=== PATIENT | female | born 1990 | race Caucasian/White ===

== ENCOUNTER 2016-11-16 22:00 | Emergency (ER) | payer SELFPAY ==
[~2016-11-16] VITALS: Ht 160 cm; Wt 54.2 kg
--- OUTSIDE RECORDS SUMMARY | 2016-11-16 22:04 | XMS REPORT ---
Author Author Yvonne Cartagena Organization [employer] Address Unknown Phone Unavailable Care Team Providers Care Mirror Fabrication Supervisor Name Role Phone Yvonne Cartagena Unavailable Allergies, Adverse Reactions, Alerts Substance Reaction Event Type Bactrim Info Not Available Drug Allergy Problems Problem Type Condition ICD-9 Code Onset Dates Condition Status Problem Nausea 787.02 Active Problem Asthma 493.90 Active Problem Bronchitis with bronchospasm 466.0 Active Assessment Bronchitis with bronchospasm 466.0 Active Assessment Nausea 787.02 Active Problem Acute upper respiratory infections of unspecified site 465.9 Active Problem Acute bronchitis 466.0 Active Medications Medication Code System Code Instructions Start Date End Date Status Dosage Alprazolam [facility] [address]-30 0.25 MG Orally Three times a day PRN January 27, 2014 Active 1 tablet Ventolin HFA [facility] [address]-37 108 (90 Base) MCG/ACT Inhalation every 4 hrs PRN January 27, 2014 Active 2 puffs as needed PredniSONE [facility] [address]-34 20 MG Orally Once a day Apr 26, 2014 May 03, 2014 Active 3 tablets x 2 days, 2 tablets x 2 days, 1 tablet x 2 days Benzonatate [facility] [address]-34 200 MG Orally Three times a day prn cough Apr 26, 2014 May 06, 2014 Active 1 capsule as needed Albuterol Sulfate HFA [facility] [address]-50 108 (90 Base) MCG/ACT Inhalation every 4 hrs prn wheezing/cough Apr 26, 2014 Active 2 puffs as needed Procedures Procedure Coding System Code Date AIRWAY INHALATION TREATMENT CPT-4 10992 Apr 26, 2014 ALBUTEROL NON-COMP UNIT CPT-4 J7613 Apr 26, 2014 URINE TEST CPT-4 63539 Apr 26, 2014 OFFICE VISIT EST PATIENT LEVEL 3 CPT-4 14004 Apr 26, 2014 Vital Signs Date/Time: Apr 26, 2014 BMI 21.79 Index Weight 123 lbs Height 63 in Blood Pressure Diastolic 70 mm Hg Blood Pressure Systolic 114 mm Hg Cardiac Monitoring Heart Rate 60 /min Temperature 98 F Oximetry 99 % Respiratory Rate 20 /min Results No Known Results Summary Purpose [employer] Submission
--- OUTSIDE RECORDS SUMMARY | 2016-11-16 22:04 | XMS REPORT | Summary of Care ---
Author Author Kim Shea APRN Organization Unknown Address [address] [facility] [place], [place] [id number] Phone Unavailable Care Team Providers Care Spring Salvage Worker Name Role Phone Kim Shea APRN Unavailable Unavailable Unavailable Unavailable Functional Status Functional Status Health Issues* Name Dates Details Functional status health issues are not documented Status: Cognitive Status Health Issues* Name Dates Details Cognitive status health issues are not documented Status: Problems Name Dates Details Acute bronchitis (466.0, J20.9) Status: Active Acute pharyngitis (462, J02.9) Status: Active Acute sinusitis (461.9, J01.90) Status: Active Medications Name Dates Details Amoxicillin 500 MG Oral Capsule TAKE 2 CAPSULES TWICE DAILY UNTIL GONE. Quantity: 40 Kim Shea NEURO UROLOGIST* Started 06-Sep-2014 Ended 16-Sep-2014 Active Allergies and Adverse Reactions Name Dates Details Bactrim TABS Status: Active Sulfa Drugs Status: Active Procedures Procedure Dates Details Procedures not documented Immunization Name Dates Details Immunizations not documented Social History Name Dates Details Smoking Status* Smoker. current status unknown Vital Signs Date Test Result Details 06-Sep-2014 10:02 Heart Rate 105 /min Status: Temperature 98.8 f Status: Weight 120 lb Status: O2 SAT 98 % Status: Results Date Description Value Details Results not documented Plan of Care Planned Observations* Name Dates Details Planned Goals not documented Goal Instructions * Instructions not documented Encounters Appointment; Kim Shea Encounter Diagnosis: Problem not documented On 06-Sep-2014 09:50 Appointment; Zeina Fitzpatrick Encounter Diagnosis: Problem not documented On 26-Jul-2014 09:40 Appointment; Zeina Fitzpatrick Encounter Diagnosis: Problem not documented On 03-Mar-2014 12:20
--- OUTSIDE RECORDS SUMMARY | 2016-11-16 22:04 | XMS REPORT | Referral Summary ---
Author Author [facility] Organization [facility] Address Unknown Phone Unavailable Care Team Providers Care Consulting Software Engineer Name Role Phone Iker Owen Primary Care Physician [phone] Encounter VC Date(s): 02/11/15 - 02/11/15 [facility] [address] [place] [id number] Discharge Diagnosis: Synovitis of knee Discharge Disposition: 01-Home or Self Care Attending Physician: Gary Lemon MD Admitting Physician: Gary Lemon MD Vital Signs Most recent to 1 oldest [Reference Range]: Respiratory Rate 18 br/min [14-20 br/min] (02/11/15 4:21 PM) Problem List Condition Effective Dates Status Health Status Informant Abscess of 2010 Active buttock(Confirmed) Asthma(Confirmed) Active Depression(Confirmed Active ) Synovitis of Active knee(Confirmed) tonsillectomy(Confir Resolved med) Chicken Active pox(Confirmed) Allergies, Adverse Reactions, Alerts Substance Reaction Severity Status sulfamethoxazole HIVES Active THROAT SWELL trimethoprim HIVES Active THROAT SWELL Medications Cipro 500 mg oral tablet 1 tabs, Oral, q12hr Start Date: 09/06/14 Status: Ordered ibuprofen 0 Refill(s) Start Date: 01/21/14 Status: Ordered Results No data available for this section Immunizations No data available for this section Procedures Procedure Date Related Diagnosis Body Site Arthrocentesis, aspiration and/or injection, 02/11/15 major joint or bursa (eg, shoulder, hip, knee, subacromial bursa); without ultrasound guidance I&D and packing and ABX S/P tonsillectomy Social History Social History Type Response Smoking Status Current every day smoker; Type: Cigarettes; Tobacco use per day: 1 Pack Assessment and Plan Extracted from: Title: Office Visit Note Author: Gary Lemon MD Date: 02/11/15 Assessment/Plan Synovitis of knee Think she has synovitis in her knee. She get relief in the past with doing an injection. I'd recommend doing another injection. I think her pain is out of proportion to what were finding as well. I'd recommend we do an injection if she does not get good relief with that then I need to see her back and probably do further workup with possibly an MRI study Procedure note: Left knee was sterilely prepped with Betadine. Injected left knee joint with 80 mg of Kenalog and 8 mL of one percent lidocaine. Ordered: triamcinolone, 2 mL, IntraARTICULAR , Once, First Dose: 02/11/15 10:00:00 CDT, Stop Date: 02/11/15 10:00:00 CDT, [facility] [id number] Arthro/Asp Major Joint Inj (Shoulder, Hip, Knee) 31289 Office Visit Level 3 Est 01028
--- OUTSIDE RECORDS SUMMARY | 2016-11-16 22:04 | XMS REPORT ---
Author Author Fabiola Ash Organization [employer] Address Unknown Phone Unavailable Care Team Providers Care Director Of Teacher Education Name Role Phone Fabiola Ash CP Unavailable Allergies No Known Allergies Problems Problem Type Condition ICD-9 Code Onset Dates Condition Status Problem Acute upper respiratory infections of unspecified site 465.9 Active Problem Acute bronchitis 466.0 Active Problem Asthma 493.90 Active Medications No Known Medications Results No Known Results Summary Purpose [employer] Submission
--- OUTSIDE RECORDS SUMMARY | 2016-11-16 22:05 | XMS REPORT ---
Author Author [employer] Organization Unknown Address Unknown Phone Unavailable Care Team Providers Care Sewer Connector Name Role Phone PP Unavailable Reason For Visit Chief Complaint MIGRAINE Social History Functional Status Vital Signs Results Problems Encounter Diagnosis No relevant problems exist. Encounters Encounter Diagnosis No relevant problems exist. Plan of Care Procedures No relevant procedures performed. Immunizations No immunizations administered or ordered. Hospital Course Hospital Discharge Instructions Allergies, Adverse Reactions, Alerts * Latex Allergy has not been assessed. * IV Contrast Allergy has not been assessed. Medication Medication reconciliation has not been performed.
--- OUTSIDE RECORDS SUMMARY | 2016-11-16 22:05 | XMS REPORT ---
Author Author [employer] Organization Unknown Address Unknown Phone Unavailable Care Team Providers Care Sew On Operator Name Role Phone PP Unavailable Reason For Visit Chief Complaint L KNEE PAIN Social History Functional Status Vital Signs Results Hematology from 02/25/2016 11:10 PMWBC 7.8 X10e3/UL (3.6-11.2 X10e3/UL) RBC 4.29 X10e6/UL (3.63-4.92 X10e6/UL) HEMOGLOBIN 13.8 G/DL (11.0-14.3 G/DL) HEMATOCRIT 39.5 % (31.2-41.9 %) *MCV 92.1 FL (79.0-98.0 FL) *MCH 32.1 PG (27.0-33.0 PG) *MCHC 34.8 G/DL (32.0-36.0 G/DL) *RDW 11.7 % L (12.3-17.0 %) PLATELET 247 X10e3/UL (159-386 X10e3/UL) *MPV 9.4 FL (7.4-10.4 FL) AUTOMATED DIFF PERFORMED SEGS 66.0 % *LYMPHOCYTES 27.6 % *MONOCYTES 4.7 % *EOSINOPHILS 0.7 % *BASOPHILS 1.0 % *ABSOLUTE NEUTROPHILS 5.10 X10e3/UL (1.80-7.80 X10e3/UL) *ABSOLUTE LYMPHOCYTES 2.10 X10e3/UL (1.00-3.00 X10e3/UL) *ABSOLUTE MONOCYTES 0.40 X10e3/UL (0.30-1.00 X10e3/UL) *ABSOLUTE EOSINOPHILS 0.10 X10e3/UL (0.00-0.50 X10e3/UL) *ABSOLUTE BASOPHILS 0.10 X10e3/UL (0.00-0.20 X10e3/UL) DX Radiology from 02/25/2016 11:01 PMKNEE LEFT 3 VIEWS History: knee pain . Technique: 3 view knee performed. Priors: None. Findings: No acute fractures or subluxations are identified. There is no joint effusion. Impression: Unremarkable radiographs of the left knee. Electronically signed by: Carloz Brown MD Dictated: 02/26/2016 13:30 Problems Encounter Diagnosis No relevant problems exist. [...]
--- OUTSIDE RECORDS SUMMARY | 2016-11-16 22:05 | XMS REPORT | Continuity of Care Document ---
Author Author [facility] Organization [facility] Address Unknown Phone Unavailable Allergies Medications Problems Procedures Results Encounters ACCT No. Visit Date/Time Discharge Status Pt. Type Provider Facility Loc./Unit Complaint [id number] 04/26/2016 13:29:00 2015 00:58:22 [facility] Emergency DONALD ANDERSON MIGRAINE [id number] 02/25/2016 19:50:00 2015 17:18:30 DIS Emergency SHIVAM ARREDONDO KNEE PAIN
--- OUTSIDE RECORDS SUMMARY | 2016-11-16 22:05 | XMS REPORT | Summary of Care ---
Author Author Zeina Fitzpatrick APRN Organization Unknown Address [address], [place] [id number] Phone Unavailable Care Team Providers Care Residential Mortgage Manager Name Role Phone Amari PAGE Zeina Unavailable Unavailable Unavailable Unavailable Functional Status Functional Status Health Issues* Name Dates Details Functional status health issues are not documented Status: Cognitive Status Health Issues* Name Dates Details Cognitive status health issues are not documented Status: Problems Name Dates Details Acute bronchitis (466.0, J20.9) Status: Active Acute pharyngitis (462, J02.9) Status: Active Medications Name Dates Details Azithromycin 250 MG Oral Tablet TAKE 2 TABLETS ON DAY 1 THEN TAKE 1 TABLET A DAY FOR 4 DAYS. Quantity: 1 Zeina Fitzpatrick APRN* Started 03-Mar-2014 Active6 Tablet Disp Pack PredniSONE 10 MG Oral Tablet TAKE 4 TABLETS DAILY FOR 2 DAYS,3 TABLETS DAILY FOR 2 DAYS, 2 TABLETS DAILY FOR 2 DAYS AND 1 TABLET DAILY FOR 2 DAYS, THEN STOP. * Quantity: 20 Refills: 0 Zeina Fitzpatrick APRN* Started 03-Mar-2014 Active Allergies and Adverse Reactions Name Dates Details Bactrim TABS Status: Active Procedures Procedure Dates Details Procedures not documented Immunization Name Dates Details Immunizations not documented Social History Name Dates Details Smoking Status* Smoker. current status unknown Vital Signs Date Test Result Details 26-Jul-2014 09:47 Heart Rate 90 /min Status: Temperature 98.4 f Status: Weight 120 lb Status: O2 SAT 98 % Status: Results Date Description Value Details Results not documented Plan of Care Planned Observations* Name Dates Details Planned Goals not documented Goal Instructions * Instructions not documented Encounters Appointment; Zeina Fitzpatrick Encounter Diagnosis: Problem not documented On 26-Jul-2014 09:40 Appointment; Zeina Fitzpatrick Encounter Diagnosis: Problem not documented On 03-Mar-2014 12:20
--- OUTSIDE RECORDS SUMMARY | 2016-11-16 22:05 | XMS REPORT | Summary of Care ---
Author Author Amari PAGE Zeina Organization Unknown Address [address] [place], [place] [id number] Phone Unavailable Care Team Providers Care Echo Tech Name Role Phone Amari PAGE Zeina Unavailable Unavailable Unavailable Unavailable Functional Status Functional Status Health Issues* Name Dates Details Functional status health issues are not documented Status: Cognitive Status Health Issues* Name Dates Details Cognitive status health issues are not documented Status: Problems Name Dates Details Acute bronchitis (466.0, J20.9) Status: Active Acute pharyngitis (462, J02.9) Status: Active Medications Name Dates Details PredniSONE 10 MG Oral Tablet TAKE 4 TABLETS DAILY FOR 2 DAYS,3 TABLETS DAILY FOR 2 DAYS, 2 TABLETS DAILY FOR 2 DAYS AND 1 TABLET DAILY FOR 2 DAYS, THEN STOP. Quantity: 20 Kartikjustinshiela Zeina PAGE* Started 03-Mar-2014 ActiveAzithromycin 250 MG Oral Tablet TAKE 2 TABLETS ON DAY 1 THEN TAKE 1 TABLET A DAY FOR 4 DAYS. * Quantity: 1 Refills: 0 VíctorMariobobby Zeina PAGE* Started 03-Mar-2014 Active6 Tablet Disp Pack Allergies and Adverse Reactions Name Dates Details Bactrim TABS Status: Active Procedures Procedure Dates Details Procedures not documented Immunization Name Dates Details Immunizations not documented Social History Name Dates Details Smoking Status* Smoker. current status unknown Vital Signs Date Test Result Details No Known Vitals to report Results Date Description Value Details Results not documented Plan of Care Planned Observations* Name Dates Details Planned Goals not documented Goal Instructions * Instructions not documented Encounters Appointment; Zeina Fitzpatrick Encounter Diagnosis: Problem not documented On 26-Jul-2014 09:40 Appointment; Zeina Fitzpatrick Encounter Diagnosis: Problem not documented On 03-Mar-2014 12:20
--- OUTSIDE RECORDS SUMMARY | 2016-11-16 22:05 | XMS REPORT ---
Author Author Rama Howard Organization [employer] Address Unknown Phone Unavailable Care Team Providers Care Regional Facilities Manager Name Role Phone Rama Howard CP Unavailable Allergies No Known Allergies Problems Problem Type Condition ICD-9 Code Onset Dates Condition Status Problem Acute upper respiratory infections of unspecified site 465.9 Active Problem Acute bronchitis 466.0 Active Problem Asthma 493.90 Active Medications No Known Medications Results No Known Results Summary Purpose [employer] Submission
[2016-11-16 22:08] VITALS: Ht 160 cm; Wt 54.2 kg
--- OUTSIDE RECORDS SUMMARY | 2016-11-16 22:13 | XMS REPORT ---
Author Author [employer] Organization Unknown Address Unknown Phone Unavailable Care Team Providers Care Junior Automation Engineer Name Role Phone PP Unavailable Reason For [...]
--- OUTSIDE RECORDS SUMMARY | 2016-11-16 22:13 | XMS REPORT | Continuity of Care Document ---
Author Author [facility] Organization [facility] Address Unknown Phone Unavailable Allergies Medications Problems Procedures Results Encounters ACCT No. Visit Date/Time Discharge Status Pt. Type Provider Facility Loc./Unit Complaint [id number] 04/26/2016 13:29:00 2015 00:58:22 DIS Emergency DONALD ANDERSON MIGRAINE [id number] 02/25/2016 19:50:00 2015 17:18:30 DIS Emergency SHIVAM ARREDONDO KNEE PAIN
--- OUTSIDE RECORDS SUMMARY | 2016-11-16 22:13 | XMS REPORT ---
Author Author [employer] Organization Unknown Address Unknown Phone Unavailable Care Team Providers Care Rn Neonatal Name Role Phone PP Unavailable Reason For [...]
[2016-11-16 22:45] LABS: BLOOD, URINE NEGATIVE (NEGATIVE); COLOR,URINE YELLOW (YELLOW); LEUKOCYTE ESTERASE ,URINE NEGATIVE (NEGATIVE); NITRITE,URINE NEGATIVE (NEGATIVE)
[2016-11-16] MEDS ORDERED: HYDROMORPHONE 2mg/ml INJECTION IV ONE ×2 (22:45→23:00)
--- NOTE | 2016-11-16 22:50 | ERPDOC ---
Departure Disposition Decision Date: Nov 17, 2016 Disposition Decision Time: 01:34 (ABHINAV RAMOS DO) Disposition: 01 DISCHARGED HOME, SELF-CARE Impression Impression (ALCON RUSS APRN) Impression: Primary Impression: Abdominal pain Abdominal location: unspecified location Qualified Codes: R10.9 - Unspecified abdominal pain Additional Impression: Constipation Constipation type: unspecified constipation type Qualified Codes: K59.00 - Constipation, unspecified Severity: Moderate (ABHINAV RAMOS DO) Condition: Improved Seen By: Physician and Mid-level (ABHINAV RAMOS DO) Referrals: LARS SPEAR MD (Family) 2 Days Patient Instructions: Abdominal Pain (ED) Problems/Meds/Labs Reviewed?: Yes Medications reviewed and manag: Yes (ABHINAV RAMOS DO) Mental Status: Alert, Oriented (ALCON RUSS APRN) Follow up care ordered?: Yes Mental Status: Alert, Oriented (ABHINAV RAMOS DO) Scripts Polyethylene Glycol 3350 (Miralax) 17 Gm Powd.pack 17 G PO DAILY for 14 Days, #1 BOTTLE 0 Refills Take 17 Grams (1 capful), by mouth, once a day. Prov: ABHINAV RAMOS DO 11/17/16 Hydrocodone/Acetaminophen ([place] 5-325 Tablet) 5-325 Tablet 1 TAB PO Q4HR Y for PAIN for 2 Days, #12 TAB 0 Refills Prov: ABHINAV RAMOS DO 11/17/16 Ondansetron (Zofran Odt) 4 Mg Tab.rapdis 4 MG PO Q4HR Y for NAUSEA &/OR VOMITING for 3 Days, #18 TAB 0 Refills Prov: ABHINAV RAMOS DO 11/17/16 HPI - Female General Chief Complaint: Abdominal Pain Stated Complaint: ABD PAIN Time Seen by Provider: 22:06 Source: patient (ALCON RUSS APRN) Time Seen by Provider: 22:06 (ABHINAV RAMOS DO) HPI - Female Initial Comments 26-year-old female presents to ER with complaint of jair-umbilical abdominal pain that radiates "straight through" to her back that started around 1230 today. Pain has been constant, patient describes it as an ache. Patient is concerned that her IUD has moved. When I asked patient why she thinks IUD has moved she says she can no longer felt the strings. Patient does admit that she did have sexual intercourse prior to onset of periumbilical pain. Patient also reports having some spotting earlier today which started after sexual intercourse. Patient reports pain is worse when she is standing upright. Denies fever, chills, nausea, vomiting, diarrhea or dysuria. Last BM yesterday. When asked when LMP patient says she does not have them with IUD. Duration: 6-12 hrs Pain Scale: Now: 5/10 Severity/Quality: sharpness Location: periumbilical Radiation: back Sexual [place] History: greater than 2 months ago, single partner Associated Symptoms: abdominal pain, DENIES: diaphoresis, dysuria, fever/chills , loss of bladder control, lower back pain, lumps, mass, nausea/vomiting, nocturia, polyuria, swelling, syncope, urinary frequency Is Pt now?: No Expected Date of Delivery: Sep 21, 2008 : 1 Para: 0 (ALCON RUSS APRN) Allergies: Coded Allergies: sulfamethoxazole (Verified Allergy, Severe, ANAPHYLAXIS, 11/16/16) trimethoprim (Verified Allergy, Severe, ANAPHYLAXIS, 11/16/16) hydroxyzine HCl (Unverified Adverse Reaction, Unknown, 11/16/16) Past History Past Medical History Pt denies signifigant PMH (ALCON RUSS APRN) Surgical History Denies Surgeries (ALCON RUSS APRN) Family History Family PMH: FOUND: OR, diabetes, hypertension (ALCON RUSS APRN) Vaccines Hx Influenza Vaccination: Yes Hx Pneumococcal Vaccination: No (ALCON RUSS APRN) Social History Sexuality: male partner (ALCON RUSS APRN) Review of Systems Constitutional Constitutional: DENIES: chills, dizziness, fever, weakness (ALCON RUSS APRN) Eyes General: DENIES: erythema, exudate Lids/Accessories: DENIES: erythema, swelling (ALCON RUSS APRN) ENMT Ears: DENIES: pain Hearing: DENIES: hearing loss Sinuses: DENIES: congestion, rhinorrhea Mouth/Throat: DENIES: sore throat (ALCON RUSS APRN) Cardiovascular Cardiac: DENIES: chest pain, murmur Rhythm/Rate: DENIES: palpitations (ALCON RUSS APRN) Pulmonary Respiratory: DENIES: cough, dyspnea (RUSS,ALCON A SUBMARINE OPERATOR) GI Upper Abdomen: pain, see HPI, DENIES: nausea, vomiting Lower Abdomen: pain, see HPI, DENIES: blood in stool, constipation, diarrhea ( RUSSROSALEES A SUBMARINE OPERATOR) General: DENIES: burning, dysuria, frequency, pain, urgency (RUSSROSALEES A SUBMARINE OPERATOR) Musculoskeletal General: DENIES: joint pain, pain, tenderness (RUSSROSALEES A SUBMARINE OPERATOR) Integumentary Skin: DENIES: color change, itching, rash (RUSSROSALEES A SUBMARINE OPERATOR) Neurological General: DENIES: ataxia, change in strength, numbness, paralysis/paresis, weakness (ROSALEE RUSSS A SUBMARINE OPERATOR) Psychiatric Psychiatric: DENIES: anxiety, depression, nervousness (ROSALEE RUSSS A SUBMARINE OPERATOR) Physical Exam General General Nourishment: well nourished, well developed, adult General Body Habitus: well groomed (ROSALEE RUSSS A SUBMARINE OPERATOR) Vitals and Pain First Documented Vital Signs Date Time Temp Pulse Resp B/P Pulse Ox O2 Delivery O2 Flow Rate FiO2 11/16/16 22:08 99.0 116 18 124/82 98 Room Air (ABHINAV RAMOS DO) Vitals and Pain Weight: Kilograms: 54.200 Height (feet): 5 Height (inches): 3.00 Triage Pain Scale: (ROSALEE RUSSS A SUBMARINE OPERATOR) Eyes (brief) Eyes Brief: found: EOMI (ROSALEE RUSSS A SUBMARINE OPERATOR) ENMT (brief) ENMT Brief: FOUND: pharnyx erythema, NOT FOUND: mucosa moist, nasal exudate, nasal swelling (ROSALEE RUSSS A SUBMARINE OPERATOR) Neck (brief) Neck: FOUND: trachea midline, NOT FOUND: adenopathy, tenderness (RUSS ALCON A SUBMARINE OPERATOR) Respiratory (brief) Respiratory: FOUND: clear all babcock, equal bilaterally, symmetrical (RUSS ALCON A SUBMARINE OPERATOR) Cardiovascular Auscultation: FOUND: S1, S2, rate (114), regular (RUSSALCON A SUBMARINE OPERATOR) Abdomen Inspection: NOT FOUND: distention Palpation: FOUND: soft, tender (mild TTP periumbilical area), NOT FOUND: McBurney's point tender, Butler's sign, Psoas sign, Rosving's sign, hepatomegaly , involuntary guarding, rebound, splenomegaly, voluntary guarding Auscultation: FOUND: normoactive (x4) (ALCON RUSS SUBMARINE OPERATOR) Musculoskeletal (brief) Musculoskeletal Brief: NOT FOUND: deformity, loss of motion (ALCON RUSS SUBMARINE OPERATOR) Integumentary (brief) Integumentary Brief: FOUND: dry, pink, warm (ALCON RUSS APRN) Neurologic (brief) Neurological Brief: FOUND: motor-no gross deficits, sensory-no gross deficits ( ALCON RUSS APRN) Psychiatric (brief) Psychiatric Brief: FOUND: alert, normal affect, oriented (ALCON RUSS SUBMARINE OPERATOR ) Differential Diagnoses Considering: Appendicitis, Constipation/Obstipation, PID, UTI, Bacterial Vaginitis, Yeast Vaginitis, Trichomonas Vaginitis (ALCON RUSS APRN) Progress Results/Orders Orders Procedure Category Date Status Time Ua, Dip Wreflex LAB 11/16/16 Complete Microsc & Sales Account Associate 22:22 LAB 11/16/16 Complete Qualitative, Urine 22:22 Iv Lock (Ed Only) EDM 11/16/16 Transmitted 22:58 Nothing By Mouth (Ed EDM 11/16/16 Transmitted Only) 22:58 Cbc W/Auto LAB 11/16/16 Complete Diff-Reflex Manual 22:58 Cmp - Comprehensive LAB 11/16/16 Complete Metabolic 22:58 Normal Saline (Normal PHA 11/16/16 Complete Saline Iv) 22:58 Hydromorphone PHA 11/16/16 Complete (Dilaudid) 23:00 Ondansetron Inj PHA 11/16/16 Complete (Zofran) 23:00 Ct Abd/Pelvis CT 11/17/16 Resulted W/Contrast Only Hydromorphone PHA 11/17/16 Complete (Dilaudid) 00:15 Iohexol (Omnipaque) PHA 11/17/16 Complete 00:26 Normal Saline (Ns) PHA 11/17/16 Complete 00:26 Saline Flush (Iv PHA 11/17/16 Complete Flush) 00:26 Lipase LAB 11/17/16 Complete (ABHINAV RAMOS DO) Lab Results Laboratory Tests Test 11/16/16 22:39 11/16/16 23:17 Urine Collection Type Straight cath Urine Color Yellow Urine Turbidity Cloudy Urine pH 8.5 Urine Specific [place] 1.015 Urine Protein Trace Urine Glucose (UA) Negative Urine Ketones Negative Urine Blood Negative Urine Nitrite Negative Urine Bilirubin Negative Urine Urobilinogen 2.0EU/DL Urine Leukocyte Esterase Negative Urinalysis Comment Microscopic not ind. Urine Test Negative White Blood Count 11.0T/MM3 Red Blood Count 4.43M/MM3 Hemoglobin 14.2GM/DL Hematocrit 40.8% Mean Corpuscular Volume 92.1UM3 Mean Corpuscular Hemoglobin 32.1UUG Mean Corpuscular Hemoglobin Concent 34.8GM/DL RDW Standard Deviation 39.9FL Platelet Count 258T/MM3 Mean Platelet Volume 10.9UM3 Immature Granulocyte % (Auto) 0.1% Neutrophils (%) (Auto) 63.7% Lymphocytes (%) (Auto) 28.0% Monocytes (%) (Auto) 5.4% Eosinophils (%) (Auto) 2.3% Basophils (%) (Auto) 0.5% Absolute Immature Granulocyte (auto 0.01T/MM3 Absolute Neutrophils (auto) 7.0T/MM3 Absolute Lymphocytes (auto) 3.1T/MM3 Absolute Monocytes (auto) 0.6T/MM3 Absolute Eosinophils (auto) 0.3T/MM3 Absolute Basophils (auto) 0.1T/MM3 Turbidity < 20 Sodium Level 146MEQ/L Potassium Level 3.9MEQ/L Chloride Level 107MEQ/L Carbon Dioxide Level 28MEQ/L Anion Gap 11MEQ/L Blood Urea Nitrogen 11.0MG/DL Creatinine 0.9MG/DL Glomerular Filtration Rate Calc 76 BUN/Creatinine Ratio 12RATIO Glucose Level 84MG/DL Calculated Osmolality 279MOSM/KG Calcium Level 9.6MG/DL Total Bilirubin 0.40MG/DL Icterus Index < 2 Aspartate Amino Transf (AST/SGOT) 22U/L Alanine Aminotransferase (ALT/SGPT) 33U/L Alkaline Phosphatase 72U/L Total Protein 7.0G/DL Albumin 4.1G/DL Globulin 2.9G/DL Albumin/Globulin Ratio 1.4RATIO Lipase 237U/L Chemistry Specimen Hemolysis < 15 (ABHINAV RMAOS DO) Medications Current ED Medications Hydromorphone HCl 1 mg 1 mg O ONCE IV ; Start 11/16/16 at 22:45; Stop 11/16/16 at 22:46; Status Cancel Sodium Chloride (Normal Saline IV) 1,000 ml @ 0 mls/hr Q0M ONCE IV Last administered on 11/16/16 23:12; Start 11/16/16 at 22:58; Stop 11/16/16 at 23:00 ; Status DC Hydromorphone HCl (Dilaudid) 0.5 mg O ONCE IV Last administered on 11/16/16 23:14; Start 11/16/16 at 23:00; Stop 11/16/16 at 23:01; Status DC Ondansetron HCl (Zofran) 4 mg O ONCE IV Last administered on 11/16/16 23:15; Start 11/16/16 at 23:00; Stop 11/16/16 at 23:01; Status DC Hydromorphone HCl (Dilaudid) 0.5 mg O ONCE IV Last administered on 11/17/16 00:19; Start 11/17/16 at 00:15; Stop 11/17/16 at 00:16; Status DC Iohexol 1 bottle 1 bottle STK-MED ONCE .ROUTE ; Start 11/17/16 at 00:26; Stop at 00:27; Status DC Sodium Chloride (NS) 100 ml @ As Directed STK-MED ONCE .ROUTE ; Start 11/17/16 at 00:26; Stop 11/17/16 at 00:27; Status DC Sodium Chloride (Iv Flush) 10 ml STK-MED ONCE .ROUTE ; Start 11/17/16 at 00:26; Stop 11/17/16 at 00:27; Status DC (ABHINAV RAMOS DO) Progress Progress Labs unremarkable Patient reports improvement of pain form a 5/10 to 4/10 after 0.5mg of dilaudid. Provider care turn over to Dr. Ramos at 0032, I discussed patient's HPI, PMH, labs, VS, exam findings and treatment given in ED. (ALCON RUSS APRN) Progress CT scan abdomen/pelvis: Large amount of stool in the colon. Nonspecific fluid- filled small bowel loops can represent enteritis versus ileus versus slow transit constipation. Appendix not identified with complete certainty. No inflammatory findings noted in the right lower quadrant. IUD in place in the fundus of the uterus. No free air. No acute findings in the CT scan. Labs / imaging were discussed in detail with the patient and questions are answered. Patient's pain is currently a 2/3 of 10. Patient was given the option of returning home and monitoring her symptoms versus staying in observation status in the hospital and elects to return home. Patient was discussed with Dr. Oakley who is manager collection for general surgery who is in agreement with the current plan of management to discharge the patient home and have the patient return if she should develop a fever or if her pain should persist or increase. Patient currently has an unremarkable CBC, is afebrile, and has an unremarkable CT scan. Strict return precautions were provided and the patient verbalizes agreement and understanding. Patient is discharged home in improved condition. She is to follow up as instructed. Patient is to return to the emergency Department if her condition worsens or changes in any manner. Patient is provided with prescriptions for [place], Zofran, and MiraLAX. She is counseled regarding cautious use of the hydrocodone as it may worsen her constipation. She is in agreement with the current plan of management. (ABHINAV RAMOS DO) CT CT : CT: Abd/Pelvis IV contrast Interpretation: Normal, Faxed Report (ABHINAV RAMOS DO) ALCON RUSS SUBMARINE OPERATOR Nov 16, 2016 22:50 ABHINAV RAMOS DO Nov 17, 2016 01:36
[2016-11-16] MEDS ORDERED: NORMAL SALINE 1,000 ML IV ONE (22:58)
[2016-11-16] MEDS ORDERED: ONDANSETRON 4mg/2ml INJECTION IV ONE (23:00)
[2016-11-16] MEDS ORDERED: NO ROUTINE MEDS (23:30)
[2016-11-16 23:38] LABS: BASOPHILS # (AUTO) 0.1 T/MM3 (0-0.2); BASOPHILS % (AUTO) 0.5 % (0-2); EOSINOPHILS # (AUTO) 0.3 T/MM3 (0-0.5); EOSINOPHILS % (AUTO) 2.3 % (0-4); HCT - HEMATOCRIT 40.8 % (36-46); HGB - HEMOGLOBIN 14.2 GM/DL (12-16); IMMATURE GRANULOCYTE # (AUTO) 0.01 T/MM3 (0.00-0.03); IMMATURE GRANULOCYTE % (AUTO) 0.1 % (0.0-0.5); LYMPHOCYTES # (AUTO) 3.1 T/MM3 (1-4.8); MEAN CORPUSCULAR HGB 32.1 UUG (26-34); MEAN CORPUSCULAR HGB CONC(MCHC 34.8 GM/DL (31-37); MEAN CORPUSCULAR VOLUME 92.1 UM3 (80-100); MEAN PLATELET VOLUME 10.9 UM3 (9.4-12.4); MONOCYTES # (AUTO) 0.6 T/MM3 (0-0.8); MONOCYTES % (AUTO) 5.4 % (0-9.0); NEUTROPHILS % (AUTO) 63.7 % (33-66); RED BLOOD COUNT 4.43 M/MM3 (4.00-5.20)
[2016-11-16 23:48] LABS: ALBUMIN 4.1 G/DL (3.5-5.0); ALBUMIN/GLOBULIN RATIO 1.4 RATIO (1.1-2.2); ALKALINE PHOSPHATASE 72 U/L (38-126); ALT (SGPT) 33 U/L (9-52); ANION GAP 11 MEQ/L (5-15); AST (SGOT) 22 U/L (14-36); BUN/CREATININE RATIO 12 RATIO (6-26); CALCIUM 9.6 MG/DL (8.4-10.2); CHLORIDE 107 MEQ/L (98-107); CO2 - CARBON DIOXIDE 28 MEQ/L (22-30); CREATININE 0.9 MG/DL (0.7-1.2); GLOMERULAR FILTRATION RATE 76; GLUCOSE 84 MG/DL (65-110); POTASSIUM 3.9 MEQ/L (3.6-5); SODIUM 146 MEQ/L (134-144)
[2016-11-17] MEDS ORDERED: HYDROMORPHONE 2mg/ml INJECTION IV ONE (00:15)
[2016-11-17] MEDS ORDERED: IOHEXOL 300 MG/ML 75ml INJECTION ONE (00:26)
[2016-11-17] MEDS ORDERED: NORMAL SALINE 100 ML ONE (00:26)
[2016-11-17] MEDS ORDERED: SALINE FLUSH 10ml SYRINGE ONE (00:26)
--- NOTE | 2016-11-17 00:28 | NUR ---
CT PT TO IMAGING AT THIS TIME VIA CART.
--- NOTE | 2016-11-17 00:46 | NUR ---
CT PT RETURN TO ROOM VIA CART FROM IMAGING
[2016-11-17] MEDS ORDERED: ONDA4TAB7 PO (01:36)
[2016-11-17] MEDS ORDERED: POLY17PO6 PO (01:36)
[2016-11-17] MEDS ORDERED: HYDR-4246 PO (01:36)
[2016-11-17 01:54] VITALS: BP 108/76; PULSE 96; RESP 16; TEMP 98.7; O2SAT 97
--- NOTE | 2016-11-17 01:54 | NUR ---
DEPART PT GIVEN DI FOR ABDOMINAL PAIN, CONSTIPATION, NORCO, ZOFRAN, MIRALAX, AND F/U. RX FOR ZOFRAN, MIRALAX, AND NORCO PROVIDED. PT VERBALIZES UNDERSTANDING OF DI. QUESTIONS ASKED/ANSWERED - DENIES FURTHER QUESTIONS/NEEDS AT THIS TIME. IV SITE REMOVED. PERSONAL BELONGINGS GATHERED. PT AMBULATED/ESCORTED TO ED EXIT - GAIT STABLE, NO SIGN OF DISTRESS AT THIS TIME.
--- NOTE | 2016-11-18 13:11 | DI ---
Indication: ITS.REASON: periumbilical pain PROCEDURE: CT ABD/PELVIS W/CONTRAST ONLY: Encounter: Initial Comparison: None Technique: Axial CT images were performed through the abdomen and pelvis after the administration of intravenous contrast. Coronal and sagittal two-dimensional reformats. Automated Exposure Control and Iterative Reconstruction dose reducing techniques were utilized. Contrast: Omnipaque 300 67 mL Findings: The lung bases are clear. The liver is normal. Gallbladder, spleen, pancreas and adrenal glands are within normal limits. Kidneys are normal. Stomach is distended with fluid and debris. Intrauterine device in place. No gross adenopathy or free fluid. No evidence of a bowel obstruction. Moderate to large amount of stool in the colon. Appendix is not seen but there is no inflammatory change in its expected location. Bone windows are within normal limits. Impression: No acute disease process seen. Increased colonic stool burden. There is a preliminary report by [employer] radiologic. .
== END 2016-11-17 01:50 | disposition home or self-care (01) ==
LOC: ED 22:00
DX: R10.33 Periumbilical pain (principal); N93.9 Abnormal uterine and vaginal bleeding, unspecified; K59.00 Constipation, unspecified; Z97.5 Presence of (intrauterine) contraceptive device
CPT/HCPCS: 80053; 81003; 81025; 83690; 85025